=== PATIENT | female | born 1945 | race Caucasian/White ===

== ENCOUNTER 2016-09-29 01:04 | Emergency (ER) | payer MEDICARE, MEDICAID ==
[2016-09-29] MEDS ORDERED: ASPIRIN 81 MG CHEW TAB ONE (01:37)
[2016-09-29] MEDS ORDERED: KETOROLAC 30 MG/ML VIAL ONE (04:18)
[2016-09-29] MEDS ORDERED: ORPHENADRINE 60 MG/2 ML AMP ONE (04:53)
== END 2016-09-29 06:33 | disposition home or self-care (01) ==
LOC: ER 01:04
DX: R07.89 Other chest pain (principal); J44.9 Chronic obstructive pulmonary disease, unspecified; M62.838 Other muscle spasm; F17.210 Nicotine dependence, cigarettes, uncomplicated
CPT/HCPCS: 36415; 71010; 80053; 82550; 83735; 84484; 85025; 85379; 85610; 85730; 93005; 96374; 96375; 99285; J1885